=== PATIENT | female | born 1990 | race Two or more races ===

== ENCOUNTER 2016-12-09 03:57 | Emergency (ER) | payer OTHER ==
[2016-12-09 03:45] LABS: URINE SOURCE CLEAN CATCH
[2016-12-09 03:49] LABS: URINE APPEARANCE CLEAR; URINE BILIRUBIN NEG (NEG); URINE BLOOD NEG (NEG); URINE COLOR YELLOW; URINE GLUCOSE NEG (NORM); URINE KETONE NEG (NEG); URINE LEUKOCYTE ESTERASE NEG (NEG); URINE NITRATE NEG (NEG); URINE PROTEIN NEG (NEG); URINE SPECIFIC GRAVITY >=1.030 (1.003-1.035); URINE UROBILINOGEN 0.2 MG/DL (NORM)
[2016-12-09 03:50] LABS: MICRO INDICATED? NO
[~2016-12-09 03:57] MED LIST: FLEXERIL10 MG PO; VOLTAREN75 MG PO
[2016-12-11 10:26] LABS: CHLAMYDIA TRACH Not Detected (Not Detected); N GONOR Not Detected (Not Detected)
== END 2016-12-09 05:02 | disposition home or self-care (01) ==
LOC: SED 03:57
PROVIDERS: Emergency Medicine
DX: L98.9 Disorder of the skin and subcutaneous tissue, unspecified (principal); F17.210 Nicotine dependence, cigarettes, uncomplicated
CPT/HCPCS: 81003; 84703; 87253; 87491; 87591; 87808; 87905; 99284